=== PATIENT | male | born 1960 | race Caucasian/White ===

== ENCOUNTER → 2020-03-23 | Day surgery (SDC) | payer MEDICAID ==
[~2020-03-23] MED LIST: Ketamine 200 MG/20 ML MDV IV ONE; Lactated Ringers 1,000 ML IV SCH; Propofol 200 MG/20 ML SDV IV ONE; fentaNYL 100 MCG/2 ML SDV IV ONE
--- NOTE | 2020-03-23 19:52 | OR ---
DATE OF OPERATION: 03/23/2020 PREOPERATIVE DIAGNOSIS: 1. CHRONIC GASTROESOPHAGEAL REFLUX DISEASE. 2. DYSPHAGIA. 3. EPIGASTRIC PAIN. 4. SCREENING COLONOSCOPY. POSTOPERATIVE DIAGNOSIS: 1. CHRONIC GASTROESOPHAGEAL REFLUX DISEASE. 2. DYSPHAGIA. 3. EPIGASTRIC PAIN. 4. SCREENING COLONOSCOPY. SURGEON: Da Saavedra MD PROCEDURE: 1. EGD WITH BIOPSIES X3, MILTON. 2. FULL-LENGTH COLONOSCOPY. ANESTHESIA: MAC. COMPLICATIONS: None. SPECIMEN: 1. Antral biopsy x3. 2. Antral MILTON. FINDINGS: 1. Full-length EGD: a. Diffuse gastritis with gastric ulcers x2. b. Spontaneous GERD without esophagitis. No stricturing, ulceration, or Garvey's changes. 2. Full-length colonoscopy. a. Pandiverticulosis, [id number]. RECOMMENDATIONS: Patient is on proton pump therapy for his ulcers. Lifestyle modification instructed in the form of avoidance of nicotine and alcohol, the patient is aware. Routine colonoscopy followup every 10 years. INDICATIONS: The patient was in for a routine exam. It has been many years since he has had health care. He has been having a lot a reflux epigastric pain and some occasional dysphagia. He is overdue for colonoscopy. We elected to proceed with both procedures. DESCRIPTION OF PROCEDURE: The patient was prepped and draped, placed in the left lateral decubitus position. A lubricated Olympus gastroscope was inserted over a bit, advanced to the cricopharyngeus area and intubated into the esophagus. Esophageal lining was benign in its entire course. The Z-line was crisp and sharp at 40 cm. There was no hernia, distal esophagitis, stricturing, ulceration, or Garvey's changes. Spontaneous reflux was seen, however. The scope was advanced into the stomach, through the pylorus, and into the second portion of the duodenum. This and the duodenal bulb were for the most part benign. A little bit of inflammation of the duodenal bulb, but minimal. The scope was brought back into the stomach and retroflexed. The upper fundus and cardia appeared benign. The distal portion of the fundus and the entire antrum had evidence of gastritis. The patient has two gastric ulcers near the pyloric region. Biopsies were taken along with a CLOtest. Air was then suctioned from the stomach and the scope removed without complication. A lubricated Olympus colonoscope was then inserted and easily advanced to the cecum. Direct visualization of the ileocecal valve and appendiceal orifice was accomplished. The bowel prep was adequate. There was solid stool throughout in some areas, but most of the colon could be visualized well. Upon withdrawal, throughout the entire length of the colon, I could find no signs of polyps, masses, ulceration, or bleeding sites. No vascular abnormalities or signs of colitis. The patient does have [id number] pandiverticular disease throughout. The rectal vault appeared benign. Retroflexion showed no perianal lesions. Air was suctioned, scope removed. SHUKRI/DEDRICK /[id number]
== END ==
LOC: CC.SDS 11:05
PROVIDERS: ATTEND Family Medicine
DX: Z12.11 Encounter for screening for malignant neoplasm of colon (principal); K21.9 Gastro-esophageal reflux disease without esophagitis; I78.1 Nevus, non-neoplastic; K31.89 Other diseases of stomach and duodenum; K29.70 Gastritis, unspecified, without bleeding; K25.9 Gastric ulcer, unspecified as acute or chronic, without hemorrhage or perforation; K57.30 Diverticulosis of large intestine without perforation or abscess without bleeding; M54.9 Dorsalgia, unspecified; N52.9 Male erectile dysfunction, unspecified; R05 Cough; F17.210 Nicotine dependence, cigarettes, uncomplicated; Z11.59 Encounter for screening for other viral diseases; Z79.899 Other long term (current) drug therapy; Z88.8 Allergy status to other drugs, medicaments and biological substances
CPT/HCPCS: 43239; 87081; G0121; J2704; J3010; J7120; U0002

== ENCOUNTER → 2020-07-05 | Day surgery (SDC) | payer MEDICAID, OTHER ==
[~2020-07-05] MED LIST changes: +Acetaminophen/oxyCODONE 325-5 MG Tab PO PRN; +Dexamethasone 4 MG/ML 5 ML MDV IV ONE; +Glycopyrrolate 0.2 MG/ML SDV IVPUSH ONE; +HYDROmorphone 1 MG/ML Syringe IV ONE; +Ketorolac 30 MG/ML SDV IVPUSH ONE; -Lactated Ringers 1,000 ML IV SCH; +Midazolam 1 MG/ML 2 ML SDV IV ONE; +Morphine 2 MG/ML SYRINGE IV PRN; +Neostigmine Methylsulfate 10 MG/10 ML MDV IVPUSH ONE; +Ondansetron 4 MG/2 ML SDV IV ONE; +Ondansetron 4 MG/2 ML SDV IVPUSH PRN; +Rocuronium 50 MG/5 ML Vial IV ONE; +Sodium Chloride 0.9% 10 ML Syringe FLUSH PRN; +Succinylcholine 200 MG/10 ML MDV IV ONE; +ceFAZolin 1 GM Vial IVPUSH STA
[2020-07-05] MEDS: Lactated Ringers 1,000 ML IV SCH ×2 (07:30→16:00)
--- NOTE | 2020-07-05 15:22 | OR ---
DATE OF OPERATION: 07/05/2020 PREOPERATIVE DIAGNOSIS: RECURRENT RIGHT INGUINAL HERNIA. POSTOPERATIVE DIAGNOSIS: RIGHT CORD AND TESTICULAR HYDROCELE. SURGEON: Yvon Johnson MD PROCEDURE: ATTEMPTED LAPAROSCOPIC REPAIR CONVERTED TO OPEN INGUINAL EXPLORATION WITH EXCISION OF HYDROCELE. ANESTHESIA: General. ESTIMATED BLOOD LOSS: Minimum. SPECIMEN: Hydrocele. INDICATIONS: This 59-year-old male has had prior right inguinal hernia. He has a physical examination compatible with a recurrent right inguinal hernia extending from the groin down into the upper part of the scrotum. He is moderately symptomatic. DESCRIPTION OF PROCEDURE: After adequate preparation, an infraumbilical incision was made. The anterior rectus sheath was incised and the right rectus muscle retracted laterally. Dissecting device was attempted to be put in the preperitoneal space. However, I could not get the space to adequately expand, and by palpation I could feel the upper edge of the mesh in the preperitoneal space. This was not going to dissect free enough to see the hernia. I converted this to an open repair. A transverse incision was made over the right groin and carried down through the external abdominal oblique. This exposed the cord and a mass within the cord structures. By dissecting this free, this extended down into the scrotum surrounding the testicle and by elevating all of this out of the scrotum, it was apparent this was a large hydrocele extending from the deep inguinal ring down to and surrounding the testicle. The hydrocele was opened and the excess hydrocele membrane was dissected free. Hemostasis was controlled with the cautery. The testicle and cord were replaced within the inguinal canal down into the scrotum. There was no need to repair the deep inguinal ring exit of the cord structures. This hydrocele did not appear to be a communicating hydrocele. The external oblique was then oversewn over the spermatic cord and the skin was closed with Vicryl. BPB/MODL /[id number]
--- NOTE | 2020-07-06 08:39 | PCM.SN.2 ---
- Free Text/Narrative Note: Stable POD #1. Moderate pain but tolerable. Right groin swelling and scrotal bruising. Incisions clean. PO liquid tolerated. Can discharge today. Has FU appointment on !!-6. No restrictions on activity or diet. Percocet (#20) given for pain.
== END | disposition home or self-care (01) ==
LOC: CC.SDS 07:02
PROVIDERS: ATTEND Surgery
DX: K40.91 Unilateral inguinal hernia, without obstruction or gangrene, recurrent (principal); K21.9 Gastro-esophageal reflux disease without esophagitis; F17.200 Nicotine dependence, unspecified, uncomplicated; Z79.899 Other long term (current) drug therapy; Z53.31 Laparoscopic surgical procedure converted to open procedure
CPT/HCPCS: 49520; 55500; C1727; J0330; J0690; J1100; J1170; J1885; J2250; J2405; J2704; J2710; J3010; J3490; J7120; 00830

== ENCOUNTER 2021-07-06 17:34 | Emergency (ER) | payer MEDICAID ==
[2021-07-06] MEDS ORDERED: Ketorolac 60 MG/2 ML SDV IM ONE (17:49)
[2021-07-06] MEDS ORDERED: Orphenadrine 60 MG/2 ML Inj IM ONE (17:49)
--- NOTE | 2021-07-06 17:57 | EDM.PDOC ---
ED HPI GENERAL MEDICAL PROBLEM - General Chief Complaint: General Stated Complaint: Lower Back Pain Time Seen by Provider: 07/06/21 17:40 Source of Information: Reports: Patient History Limitations: Reports: No Limitations - History of Present Illness INITIAL COMMENTS - FREE TEXT/NARRATIVE: Christos is a 60 year old who presents to ER with complaints of low back and right leg pain. Has history of chronic low back, takes [place] and tramadol for this but have not been helping. Had surgery one year ago for a hydrocele and questions if leg pain is exacerbated by that. Has had muscle spasms in his right leg much of the day and feels it is the sciatica that caused this. Ate a banana, took a flexeril and admits that it is better at the moment but is worried about what to do when it returns. No weakness in his leg. No fevers. No injury or changes in his routine as of late. Onset: Gradual Duration: Hour(s):, Waxing/Waning Location: Reports: Back, Lower Extremity, Right Quality: Reports: Ache, Other (spasm) Severity: Severe Improves with: Reports: Medication, Rest Associated Symptoms: Denies: Confusion, Chest Pain, Cough, Fever/Chills, Loss of Appetite, Nausea/Vomiting, Shortness of Breath lower back into r leg Pain Score (Numeric/FACES): 8 - Related Data Allergies Allergy/AdvReac Type Severity Reaction Status Date / Time atorvastatin [From Lipitor] Allergy Anaphylactic Verified 07/06/21 17:37 Shock Home Meds: Home Meds Budesonide/Formoterol [Symbicort 160-4.5 MCG] 2 puff INH BID 03/19/20 [History] Hydrocodone/Acetaminophen [Hydrocodone-Acetamin 5-325 mg] 1 tab PO Q6H PRN 03/19/20 [History] tadalafiL [Cialis] 5 mg PO DAILY PRN 03/19/20 [History] traMADol HCl [Tramadol HCl] 50 mg PO BID 03/19/20 [History] Dexlansoprazole [Dexilant] 60 mg PO DAILY 06/28/20 [History] Past Medical History Respiratory History: Reports: Asthma Gastrointestinal History: Reports: GERD Musculoskeletal History: Reports: Back Pain, Chronic Social & Family History - Family History Family Medical History: No Pertinent Family History - Tobacco Use Tobacco Use Status *Q: Never Tobacco User Used Tobacco, but Quit: No Second Hand Smoke Exposure: No - Caffeine Use Caffeine Use: Reports: None - Recreational Drug Use Recreational Drug Use: No ED ROS GENERAL - Review of Systems Review Of Systems: See Below Constitutional: Denies: Fever, Chills, Malaise, Weakness HEENT: Reports: No Symptoms Respiratory: Denies: Shortness of Breath Cardiovascular: Denies: Chest Pain Endocrine: Denies: Fatigue GI/Abdominal: Denies: Abdominal Pain, Nausea, Vomiting : Reports: Other (surgery on hydrocele one year ago that still causes discomfort at times) Musculoskeletal: Reports: Back Pain, Leg Pain, Muscle Pain Skin: Reports: No Symptoms Neurological: Denies: Weakness ED EXAM, GENERAL - Physical Exam Exam: See Below Exam Limited By: No Limitations General Appearance: Alert, WD/WN, No Apparent Distress Head: Normocephalic Neck: Normal Inspection, Supple, Non-Tender, Full Range of Motion Respiratory/Chest: No Respiratory Distress, Lungs Clear, Normal Breath Sounds Cardiovascular: Regular Rate, Rhythm Back Exam: Normal Inspection, Muscle Spasm, Vertebral Tenderness Extremities: Normal Inspection, Normal Range of Motion Neurological: Alert, Oriented Skin Exam: Warm, Dry Course - Vital Signs Last Recorded V/S: Last Vital Signs Temp 98.1 F 07/06/21 17:35 Pulse 95 07/06/21 17:35 Resp 18 07/06/21 17:35 BP 137/70 07/06/21 17:35 Pulse Ox 96 07/06/21 17:35 - Orders/Labs/Meds Orders: Active Orders 24 hr Category Date Time Status Ketorolac [Toradol] Med 07/06/21 17:49 Once 60 mg IM ONETIME ONE Orphenadrine [Norflex] Med 07/06/21 17:49 Once 60 mg IM ONETIME ONE Departure - Departure Time of Disposition: 18:03 Disposition: Home, Self-Care 01 Condition: Good Clinical Impression: Chronic low back pain, Leg cramp - Discharge Information *PRESCRIPTION DRUG MONITORING PROGRAM REVIEWED*: No *COPY OF PRESCRIPTION DRUG MONITORING REPORT IN PATIENT RODERICK: No Instructions: Muscle Cramps and Spasms, Rdgm-on-Axks, Managing Chronic Back Pain Additional Instructions: 1. Rest 2. Stay well hydrated 3. Range of motion exercises with back and leg 4. Continue usual pain meds as at home 5. Continue flexeril as at home 6. Heating pad to leg and back to help relieve discomfort 7. Follow up with Dr. Saavedra for any persisting concerns. Sepsis Event Note (ED) - Evaluation Sepsis Screening Result: No Definite Risk - Focused Exam Vital Signs: Vital Signs Temp Pulse Resp BP Pulse Ox 07/06/21 17:35 98.1 F 95 18 137/70 96 - My Orders Last 24 Hours: My Active Orders 07/06/21 17:49 Ketorolac [Toradol] 60 mg IM ONETIME ONE Orphenadrine [Norflex] 60 mg IM ONETIME ONE - Assessment/Plan Last 24 Hours: My Active Orders 07/06/21 17:49 Ketorolac [Toradol] 60 mg IM ONETIME ONE Orphenadrine [Norflex] 60 mg IM ONETIME ONE
== END 2021-07-06 18:32 | disposition home or self-care (01) ==
LOC: CC.ED 17:34
DX: G89.29 Other chronic pain (principal); M54.50 Low back pain, unspecified; R25.2 Cramp and spasm; J45.909 Unspecified asthma, uncomplicated; K21.9 Gastro-esophageal reflux disease without esophagitis; Z88.8 Allergy status to other drugs, medicaments and biological substances; Z79.899 Other long term (current) drug therapy
CPT/HCPCS: 96372; 99283; J1885; J2360

== ENCOUNTER → 2021-10-10 | Day surgery (SDC) | payer MEDICAID ==
[2021-10-10] MEDS: Lactated Ringers 1,000 ML IV SCH (10:04)
[2021-10-10] MEDS: Lidocaine 1% with EPINEPHrine 1:100,000 20 ML MDV INJECT ONE (10:31)
== END ==
LOC: CC.SDS 09:28
PROVIDERS: ATTEND Surgery
DX: R10.31 Right lower quadrant pain (principal); K21.9 Gastro-esophageal reflux disease without esophagitis; N52.9 Male erectile dysfunction, unspecified; Z88.8 Allergy status to other drugs, medicaments and biological substances; Z79.899 Other long term (current) drug therapy; Z87.891 Personal history of nicotine dependence
CPT/HCPCS: J7120

== ENCOUNTER → 2022-02-20 | Day surgery (SDC) | payer MEDICAID ==
[~2022-02-20] MED LIST changes: -Acetaminophen/oxyCODONE 325-5 MG Tab PO PRN; -Dexamethasone 4 MG/ML 5 ML MDV IV ONE; +Dexamethasone 4 MG/ML SDV ONE; +Flumazenil 0.1 MG/ML 10 ML MDV ONE; -Glycopyrrolate 0.2 MG/ML SDV IVPUSH ONE; -HYDROmorphone 1 MG/ML Syringe IV ONE; +HYDROmorphone 1 MG/ML Syringe ONE; -Ketamine 200 MG/20 ML MDV IV ONE; +Ketamine 200 MG/20 ML MDV ONE; -Ketorolac 30 MG/ML SDV IVPUSH ONE; +Ketorolac 30 MG/ML SDV ONE; +Labetalol 100 MG/20 ML MDV ONE; +Lidocaine 1% with EPINEPHrine 1:100,000 20 ML MDV INJECT ONE; -Midazolam 1 MG/ML 2 ML SDV IV ONE; +Midazolam 1 MG/ML 2 ML SDV ONE; -Morphine 2 MG/ML SYRINGE IV PRN; -Neostigmine Methylsulfate 10 MG/10 ML MDV IVPUSH ONE; -Ondansetron 4 MG/2 ML SDV IV ONE; -Ondansetron 4 MG/2 ML SDV IVPUSH PRN; +Ondansetron 4 MG/2 ML SDV ONE; -Propofol 200 MG/20 ML SDV IV ONE; +Propofol 200 MG/20 ML SDV ONE; -Rocuronium 50 MG/5 ML Vial IV ONE; -Sodium Chloride 0.9% 10 ML Syringe FLUSH PRN; -Succinylcholine 200 MG/10 ML MDV IV ONE; -ceFAZolin 1 GM Vial IVPUSH STA; -fentaNYL 100 MCG/2 ML SDV IV ONE; +fentaNYL 100 MCG/2 ML SDV ONE
[2022-02-20] MEDS: Lactated Ringers 1,000 ML IV SCH ×2 (08:19→11:13)
== END ==
LOC: CC.SDS 07:56
PROVIDERS: ATTEND Surgery
DX: N50.89 Other specified disorders of the male genital organs (principal); G89.28 Other chronic postprocedural pain; N52.9 Male erectile dysfunction, unspecified; K21.9 Gastro-esophageal reflux disease without esophagitis; M54.30 Sciatica, unspecified side; F17.210 Nicotine dependence, cigarettes, uncomplicated; Z88.8 Allergy status to other drugs, medicaments and biological substances; Z79.899 Other long term (current) drug therapy
CPT/HCPCS: J1100; J1170; J1885; J2250; J2405; J2704; J3010; J3490; J7120

== ENCOUNTER 2023-09-26 16:47 | Emergency (ER) | payer MEDICAID ==
[2023-09-26] MEDS ORDERED: Ondansetron 4 MG Tab.DIS PO ONE (17:15)
[2023-09-26] MEDS ORDERED: HYDROmorphone 0.5 MG/0.5 ML Syringe SUBCUT STA (17:22)
[2023-09-26] MEDS ORDERED: Take Home: Acetaminophen/HYDROcodone 325-5 MG, 2 Tab Pack PO ONE (17:34)
== END 2023-09-26 18:15 | disposition home or self-care (01) ==
LOC: CC.ED 16:47
DX: S20.211A Contusion of right front wall of thorax, initial encounter (principal); K21.9 Gastro-esophageal reflux disease without esophagitis; J45.909 Unspecified asthma, uncomplicated; Z88.8 Allergy status to other drugs, medicaments and biological substances; W00.0XXA Fall on same level due to ice and snow, initial encounter; Z79.899 Other long term (current) drug therapy
CPT/HCPCS: 71101-RT; 96372; 99283; A9270-GY; J1170

== ENCOUNTER 2024-09-30 09:10 | Day surgery (SDC) | payer MEDICAID ==
[2024-09-30] MEDS: Sodium Chloride 0.9% 250 ML IV SCH (10:02)
[2024-09-30] MEDS ORDERED: fentaNYL 50 MCG/ML SDV ONE (10:26)
[2024-09-30] MEDS ORDERED: Ketamine 200 MG/20 ML MDV ONE (10:26)
[2024-09-30] MEDS ORDERED: Propofol 200 MG/20 ML SDV ONE (10:26)
[2024-09-30] MEDS ORDERED: Midazolam 1 MG/ML 2 ML SDV ONE (10:26)
[2024-09-30] MEDS ORDERED: Flumazenil 0.1 MG/ML 10 ML MDV ONE (10:26)
== END 2024-09-30 11:38 | disposition home or self-care (01) ==
LOC: CC.SDS 09:10
PROVIDERS: ATTEND Family Medicine
DX: K29.80 Duodenitis without bleeding (principal); R13.10 Dysphagia, unspecified; M50.90 Cervical disc disorder, unspecified, unspecified cervical region; G89.29 Other chronic pain
CPT/HCPCS: 43239; J2250; J2704; J3010; J3490